=== PATIENT | male | born 1990 | race Caucasian/White ===

== ENCOUNTER 2021-08-28 16:02 | Emergency (ER) | payer OTHER ==
[~2021-08-28] VITALS: Ht 185.4 cm; Wt 118.0 kg
[2021-08-28] MEDS ORDERED: ACETAMINOPHEN 325MG TABLET PO ONE (17:00)
[2021-08-28] MEDS ORDERED: IBUPROFEN 400MG TABLET PO ONE (17:00)
[2021-08-28] MEDS ORDERED: LIDOCAINE 5% PATCH TOP SCH (17:00)
[2021-08-28] MEDS ORDERED: IBUP-2028 MT (18:00)
[2021-08-28] MEDS ORDERED: LIDO1ADH23 TP (18:00)
[2021-08-28] MEDS ORDERED: TOPUD PO (18:00)
[2021-08-28] MEDS ORDERED: METH-653 MT (18:01)
[2021-08-28 18:06] VITALS: BP 154/106
[2021-08-28] MEDS ORDERED: CEPH500T MT (18:09)
== END 2021-08-28 18:40 | disposition home or self-care (01) ==
LOC: ER 16:02
DX: M25.511 Pain in right shoulder (principal); L03.032 Cellulitis of left toe; Z91.81 History of falling
CPT/HCPCS: 73030; 99284